=== PATIENT | female | born 1940 | race African-American/Black ===

== ENCOUNTER 2021-05-21 11:32 | Emergency (ER) | payer MEDICARE ==
[~2021-05-21] VITALS: Ht 165.1 cm; Wt 75.0 kg
[2021-05-21 12:50] LABS: CHLORIDE 106 mEq/L (98-107)
[2021-05-21 13:14] VITALS: BP 118/65
[2021-05-21 13:54] LABS: BASOPHILS % 0.5 % (0.0-2.0); EOSINOPHILS % 1.8 % (0.0-5.0); HEMATOCRIT. 39.4 % (36.0-48.0); HEMOGLOBIN. 12.6 g/dL (12.0-16.0); LYMPHOCYTES % 47.9 % (20.0-50.0); MEAN CORPUSCULAR HEMOGLOBIN 27.8 pg (28.0-32.0); MEAN CORPUSCULAR VOLUME 86.6 fL (81.0-99.0); MEAN PLATELET VOLUME 8.7 fl (7.4-10.4); MONOCYTES % 9.6 % (2.0-8.0); NEUTROPHILS % 40.2 % (40.0-76.0); PLATELET 274 x1000/uL (130-400); RED BLOOD CELL COUNT 4.55 mill/uL (4.2-5.4)
== END 2021-05-21 13:56 | disposition left against medical advice (07) ==
LOC: ER 11:32
DX: R55 Syncope and collapse (principal); I10 Essential (primary) hypertension
CPT/HCPCS: 36415; 80053; 84484; 85025; 93005; 99284